=== PATIENT | female | born 2000 ===

== ENCOUNTER 2018-07-21 12:38 | Emergency (ER) ==
--- NOTE | 2018-07-22 09:41 | UC ---
Discharge - Sign-Out/Discharge Documenting (check all that apply): Post-Discharge Follow Up All imaging exams completed and their final reports reviewed: No Studies - Discharge Plan Condition: Stable Disposition: LEFT WITHOUT BEING SEEN - Billing Disposition and Condition Condition: STABLE Disposition: Left Without Being Seen
== END 2018-07-21 13:01 | disposition left against medical advice (07) ==
LOC: UCCORT 12:38
DX: J02.9 Acute pharyngitis, unspecified (principal); Z53.21 Procedure and treatment not carried out due to patient leaving prior to being seen by health care provider